=== PATIENT | male | born 1975 | race American Indian/Alaskan Native ===

== ENCOUNTER 2021-05-04 20:03 | Emergency (ER) | payer OTHER ==
[2021-05-04 23:31] VITALS: BP 135/70
[2021-05-05] MEDS ORDERED: LIDOCAINE VISCOUS 2% 15 ML ORAL LIQD PO ONE ×2 (04:28→04:30)
[2021-05-05] MEDS ORDERED: IBUPROFEN 600 MG TAB PO ONE ×2 (04:28→04:30)
[2021-05-05] MEDS ORDERED: AMOXICILLIN/K CLAV 875/125MG TAB PO ONE ×2 (04:28→04:30)
[2021-05-05] MEDS ORDERED: dexAMETHasone 20 MG/5 ML VIAL IM ONE ×2 (04:28→04:30)
[2021-05-05] MEDS ORDERED: ACETAMINOPHEN 500 MG TAB PO ONE ×2 (04:28→04:30)
== END 2021-05-05 06:03 | disposition home or self-care (01) ==
LOC: ED 20:03
DX: J03.80 Acute tonsillitis due to other specified organisms (principal); B96.89 Other specified bacterial agents as the cause of diseases classified elsewhere; Z79.899 Other long term (current) drug therapy
CPT/HCPCS: 96372; 99282; J1100